=== PATIENT | female | born 1940 | race Caucasian/White ===

== ENCOUNTER → 2016-09-08 | Outpatient (CLI) | payer OTHER, MEDICAID | LOC: BHCLAF 11:30 | PROVIDERS: ATTEND Internal Medicine Cardiovascular Disease | DX: I35.0 Nonrheumatic aortic (valve) stenosis (principal) | CPT/HCPCS: 93306-PO ==

== ENCOUNTER → 2016-09-15 | Outpatient (CLI) | payer OTHER, MEDICAID | LOC: CIMAGING 11:57 | PROVIDERS: ATTEND Registered Nurse | DX: Z12.31 Encounter for screening mammogram for malignant neoplasm of breast (principal) | CPT/HCPCS: G0202 ==

== ENCOUNTER → 2016-12-14 | Outpatient (CLI) | payer OTHER, MEDICAID | LOC: BHCLAF 11:15 | PROVIDERS: ATTEND Internal Medicine Cardiovascular Disease | DX: Q25.3 Supravalvular aortic stenosis (principal); R00.2 Palpitations | CPT/HCPCS: 93005-PO ==

== ENCOUNTER → 2017-07-17 | Outpatient (CLI) | payer OTHER, MEDICAID | LOC: BHLMT 10:45 | PROVIDERS: ATTEND Internal Medicine Interventional Cardiology | DX: I35.0 Nonrheumatic aortic (valve) stenosis (principal) | CPT/HCPCS: 93306-PO ==

== ENCOUNTER → 2017-08-07 | Outpatient (CLI) | payer OTHER, MEDICAID | LOC: BHLMT 09:00 | PROVIDERS: ATTEND Internal Medicine Cardiovascular Disease | DX: R00.2 Palpitations (principal) | CPT/HCPCS: 93225-PO; 93226-PO ==

== ENCOUNTER → 2017-09-20 | Outpatient (CLI) | payer OTHER, MEDICAID | LOC: CIMAGING 10:38 | PROVIDERS: ATTEND Family Medicine | DX: Z12.31 Encounter for screening mammogram for malignant neoplasm of breast (principal) ==

== ENCOUNTER → 2018-04-25 | Outpatient (CLI) | payer OTHER, MEDICAID | LOC: BHLMT 08:30 | PROVIDERS: ATTEND Internal Medicine Cardiovascular Disease | DX: Q25.3 Supravalvular aortic stenosis (principal); R01.1 Cardiac murmur, unspecified | CPT/HCPCS: 93306-PO ==

== ENCOUNTER → 2018-10-09 | Outpatient (CLI) | payer OTHER, MEDICAID | LOC: CIMAGING 10:52 | PROVIDERS: ATTEND Registered Nurse | DX: Z12.31 Encounter for screening mammogram for malignant neoplasm of breast (principal) ==